=== PATIENT | female | born 1970 | race Asian ===

== ENCOUNTER 2018-05-20 09:10 | Emergency (ER) | payer OTHER ==
[2018-05-20 09:17] VITALS: Ht 162.6 cm
[2018-05-20 12:05] VITALS: BP 144/89
== END 2018-05-20 12:05 | disposition home or self-care (01) ==
LOC: ED 09:10
DX: R51 Headache (principal); R11.10 Vomiting, unspecified; R20.2 Paresthesia of skin; R05 Cough; H53.149 Visual discomfort, unspecified; I10 Essential (primary) hypertension; E78.00 Pure hypercholesterolemia, unspecified
CPT/HCPCS: J1200; J2765; J7030

== ENCOUNTER 2019-12-18 17:03 | Emergency (ER) | payer OTHER ==
[~2019-12-18] VITALS: Ht 162.6 cm; Wt 73.0 kg
[2019-12-18 17:09] VITALS: Ht 162.6 cm; Wt 73.0 kg
[2019-12-18 19:39] VITALS: BP 138/75
== END 2019-12-18 20:08 | disposition home or self-care (01) ==
LOC: ED 17:03
DX: R51 Headache (principal); I10 Essential (primary) hypertension; E78.00 Pure hypercholesterolemia, unspecified
CPT/HCPCS: J1200; J2765; J7030